=== PATIENT | female | born 1990 | race Two or more races ===

== ENCOUNTER 2018-05-04 20:19 | Emergency (ER) | payer MEDICAID ==
[~2018-05-04] VITALS: Ht 165.1 cm; Wt 111.1 kg
[2018-05-04 21:19] LABS: Urine Bacteria FEW /hpf (None Seen); Urine Blood 2+ /uL (Negative); Urine Mucus FEW (None Seen); Urine Specific Gravity 1.011 (1.001-1.035); Urine WBC 9 /hpf (0 - 5)
[2018-05-04 21:30] LABS: Basophils # (auto) 0 uL; Basophils % (auto) 0.1 % (0.0-2.0); Eosinophils # (auto) 0.2 uL; Eosinophils % (auto) 2.1 % (0.0-7.0); Hematocrit 40.2 % (36.0-46.0); Hemoglobin 13.4 g/dL (12.2-16.2); Lymphocytes # (auto) 1.6 uL; Lymphocytes % (auto) 13.6 % (10.0-50.0); Mean Corpuscular Hemoglobin 30.1 pg (28.0-32.0); Mean Corpuscular Hgb Conc. 33.3 g/dL (32.0-36.0); Mean Corpuscular Volume 90.5 fL (80.0-100.0); Monocytes # (auto) 0.8 uL; Monocytes % (auto) 7.3 % (0.0-12.0); Neutrophils # (auto) 8.9 uL; Neutrophils % (auto) 76.9 % (37.0-80.0); Nucleated Red Blood Cells % 0.1 %; Platelet Count (auto) 209 10^3/uL (140-450); Red Blood Cells 4.45 10^6/uL (4.0-5.20); Red Cell Distribution Width 13.1 % (11.8-14.3); White Blood Cell 11.6 10^3/uL (4.4-10.8)
[2018-05-04 21:39] LABS: Albumin 3.2 g/dL (3.4-5.0); BUN/Creatinine Ratio 8.3; Calcium 7.6 mg/dL (8.5-10.1); Potassium 3.6 mmol/L (3.5-5.1)
[2018-05-04 21:42] LABS: Bilirubin, Total 0.3 mg/dL (0.2-1.0); Total Protein 6.9 g/dL (6.4-8.2)
[2018-05-04 21:49] LABS: INR 0.99 (0.9-1.15); Partial Thromboplastin Time 25.7 sec (23.78-33.04); Prothrombin Time 10.6 sec (9.27-12.13)
[2018-05-05] MEDS ORDERED: SODIUM CHLORIDE 0.9% 1,000 ML IVB ONE (01:11)
[2018-05-05] MEDS ORDERED: ONDANSETRON HCL 4 MG/2 ML VIAL IV ONE (01:15)
[2018-05-05] MEDS ORDERED: NALBUPHINE HCL 10 MG/1ml INJECTION IV ONE (01:15)
[2018-05-05 01:28] VITALS: BP 177/94
== END 2018-05-05 03:09 | disposition home or self-care (01) ==
LOC: ER 20:19
DX: R10.13 Epigastric pain (principal); R11.2 Nausea with vomiting, unspecified; R19.7 Diarrhea, unspecified
CPT/HCPCS: 36415; 74176; 80053; 81001; 81025; 82150; 83690; 85025; 85610; 85730; 96361; 96374; 96375; 99285; J2300; J2405; J7030

== ENCOUNTER 2023-01-16 19:40 | Emergency (ER) | payer MEDICAID ==
[~2023-01-16] VITALS: Ht 162.6 cm; Wt 98.0 kg
[2023-01-16 21:19] LABS: Albumin 3.8 g/dL (3.4-5.0); Calcium 8.7 mg/dL (8.5-10.1); Potassium 3.9 mmol/L (3.5-5.1)
[2023-01-16 21:24] LABS: BUN/Creatinine Ratio 7.5 (10.0-20.0); Bilirubin, Total 0.6 mg/dL (0.2-1.0); Total Protein 8.2 g/dL (6.4-8.2)
[2023-01-16 21:40] LABS: Urine Bacteria NONE SEEN /hpf (None Seen); Urine Blood Negative /uL (Negative); Urine Specific Gravity 1.037 (1.001-1.035); Urine WBC 3 /hpf (0 - 5)
[2023-01-16 21:46] LABS: Basophils # (auto) 0.1 10 ^3/uL (0-0.2); Basophils % (auto) 2.1 % (0.0-2.0); Eosinophils # (auto) 0 10 ^3/uL (0-0.8); Eosinophils % (auto) 0.2 % (0.0-7.0); Hematocrit 44.8 % (36.0-46.0); Hemoglobin 15.5 g/dL (12.2-16.2); Lymphocytes # (auto) 1.1 10 ^3/uL (0.4-5.4); Lymphocytes % (auto) 17.5 % (10.0-50.0); Mean Corpuscular Hgb Conc. 34.6 g/dL (32.0-36.0); Mean Corpuscular Volume 86.9 fL (80.0-100.0); Monocytes # (auto) 0.3 10 ^3/uL (0-1.3); Monocytes % (auto) 5.2 % (0.0-12.0); Neutrophils # (auto) 4.8 10 ^3/uL (1.6-8.6); Nucleated Red Blood Cells % 0.2 %; Red Blood Cells 5.16 10^6/uL (4.0-5.20); Red Cell Distribution Width 12.7 % (11.8-14.3); White Blood Cell 6.4 10^3/uL (4.4-10.8)
[2023-01-16] MEDS ORDERED: HYDROcodone-ACET 5/325MG TAB PO ONE (22:30)
[2023-01-17] MEDS ORDERED: ZOFR4T PO (02:37)
[2023-01-17 03:00] VITALS: BP 135/76
== END 2023-01-17 03:11 | disposition home or self-care (01) ==
LOC: ER 19:40
DX: E87.1 Hypo-osmolality and hyponatremia (principal); E11.65 Type 2 diabetes mellitus with hyperglycemia; R74.01 Elevation of levels of liver transaminase levels; Z20.822 Contact with and (suspected) exposure to COVID-19
CPT/HCPCS: 36415; 80053; 81001; 82962; 85025; 87426; 87804

== ENCOUNTER 2023-12-05 18:13 | Emergency (ER) | payer MEDICAID ==
[~2023-12-05] VITALS: Ht 162.6 cm; Wt 100.5 kg
[~2023-12-05 18:13] MED LIST: ZOFR4T PO
[2023-12-05] MEDS ORDERED: ACE3T PO (19:26)
[2023-12-05] MEDS ORDERED: SILV1CRE82 TOP (19:26)
[2023-12-05] MEDS ORDERED: IBUP-1455 PO (19:26)
[2023-12-05] MEDS: KETOROLAC TROMETH 60MG/2ML VIAL IM ONE (20:09)
[2023-12-05] MEDS: TETANUS-DIPTH-ACEL PERTUSSIS 0.5ML SYR Tdap IM ONE (20:10)
[2023-12-05] MEDS: SILVER SULFADIAZINE 1 % TOPICAL CREAM 50GM TOP ONE (20:10)
[2023-12-05 20:33] VITALS: BP 139/99; PULSE 103; RESP 16; TEMP 98.2; O2SAT 97
== END 2023-12-05 20:32 | disposition home or self-care (01) ==
LOC: ER 18:13
DX: T24.112A Burn of first degree of left thigh, initial encounter (principal); T31.0 Burns involving less than 10% of body surface; E11.9 Type 2 diabetes mellitus without complications; E66.01 Morbid (severe) obesity due to excess calories; Z68.38 Body mass index [BMI] 38.0-38.9, adult; Z79.899 Other long term (current) drug therapy; X10.1XXA Contact with hot food, initial encounter; Y93.89 Activity, other specified; Y92.89 Other specified places as the place of occurrence of the external cause; Y99.8 Other external cause status
CPT/HCPCS: 16020; 90471; 90715; 96372; 99284; J1885

== ENCOUNTER 2024-02-10 10:50 | Emergency (ER) | payer MEDICAID ==
[~2024-02-10] VITALS: Ht 165.1 cm; Wt 100.4 kg
[~2024-02-10 10:50] MED LIST changes: +ACE3T PO; +IBUP-1455 PO; +SILV1CRE82 TOP
[2024-02-10] MEDS: methylPREDNISolone SOD SUCC 125 MG/2 ML VL IM ONE (11:46)
[2024-02-10] MEDS: KETOROLAC TROMETH 30 MG/ML 1ML VIAL IM ONE (11:46)
[2024-02-10] MEDS: ONDANSETRON ODT 4 MG TAB PO ONE (11:47)
[2024-02-10 11:56] VITALS: BP 143/98; PULSE 81; RESP 16; TEMP 97.4; O2SAT 98
[2024-02-10] MEDS ORDERED: IBUP1TAB5 PO (12:02)
[2024-02-10] MEDS ORDERED: CEPH500T PO (12:02)
[2024-02-10] MEDS: InsuLIN REG 1unit/0.01ml Soln (100units/ml) SC ONE (12:09)
== END 2024-02-10 13:14 | disposition home or self-care (01) ==
LOC: ER 10:50
DX: L25.2 Unspecified contact dermatitis due to dyes (principal); E11.65 Type 2 diabetes mellitus with hyperglycemia; Z79.899 Other long term (current) drug therapy
CPT/HCPCS: 96372; 99284; J1815; J1885; J2919; Q0162